=== PATIENT | male | born 1955 | race Caucasian/White ===

== ENCOUNTER → 2016-11-16 | Outpatient (CLI) | payer OTHER ==
[~2016-11-16] MED LIST: ADVIL COLD & S1 EAC1 PO; ATORVASTATIN CA40 MG PO; FLEXERIL PO; IBUPROFEN 200200 M1 PO; LIPITOR 20 MG T20 M1 PO; LISINOPRIL10 MG PO; LISINOPRIL20 MG PO; METFORMIN HCL500 MG PO; MOBIC15 MG PO; NORCO 10-325 T1 EACH PO; OXYCONTIN10 M1 PO; SIMVASTATIN40 MG PO; TRAMADOL 50 MG50 MG PO
[2016-11-16 13:00] LABS: CREATININE 1.2 mg/dL (0.6-1.3)
== END ==
LOC: MRI 08:31
PROVIDERS: Neurological Surgery
DX: M48.06 Spinal stenosis, lumbar region (principal); M47.26 Other spondylosis with radiculopathy, lumbar region; M54.5 Low back pain

== ENCOUNTER → 2016-11-17 | Outpatient (CLI) | payer OTHER ==
[~2016-11-17] VITALS: Ht 175.3 cm; Wt 80.7 kg
--- NOTE | ~2016-11-17 | HPC ---
[facility] [place] [address] PAIN MANAGEMENT CONSULTATION Name: JORGE PHILLIPS JR Room #: REG [facility].#: [id number] Admission: 11/17/16 Attend Phys: Carmine Hurley DO Discharge: Date of : 53 Report #: [id number] THIS REPORT FOR: //name// CC: [facility] physician/PCP Carmine Hurley The patient is a 60-year-old gentleman, prior seen in the pain clinic 07/05/2015, somewhat lost to follow up. He had been given epidural injection at that time, progressed to have left L3-L4 and L4-L5 decompressive laminectomy and fusion 09/20/2015. Notes symptoms have improved as he recovered from the surgery, but they unfortunately have again recurred, now with pain in the right buttock, leg to the calf, exacerbated with standing and walking, right heel is numb. PHYSICAL EXAMINATION: Shows a 60-year-old gentleman, BMI is 26.3 kg/m2. Blood pressure is modestly elevated 145/80, pulse 70, and respirations 16. Rises from chair using armrest, moderately antalgic gait, positive straight leg raise on the right at 30 degrees, positive straight leg raise on the left, but less symptomatic. Patellar reflex is absent on the left, 1/4 on the right (again primary pain is on the right side). Again, minimally antalgic gait. Lower extremity strength diminished right plantar flexion, lower extremity flexion. Reviewed diagnostic findings including MRI from 11/16/2016, noting significant stenosis at L2-L3, 5 x 8 mm, the aforementioned fusion L3-L5 with a right-sided herniated disk at L5-S1 compromising the right L5-S1 nerve roots. ASSESSMENT: Symptomatic lumbar radiculopathy status post decompressive laminectomy. RECOMMENDATION: 1. Long discussion with the patient today about therapeutic option. We talked about proceeding with epidural injection under fluoroscopy today at L5-S1. 2. We talked about spinal cord stimulator as possible therapeutic option versus recurrent surgery. Today, we have elected to move forward with an epidural injection under fluoroscopy today at L5-S1. I have taken the liberty of writing for hydrocodone 10/325 one tablet up to 4 times a day. The patient was cautioned about daytime somnolence, mental acuity changes, and constipation. This had prior been prescribed by Dr. Gao's office, but unfortunately his office is changing locations at present. PROCEDURE: Lumbar epidural injection under fluoroscopy. PROCEDURE NOTE: After both written and informed consent to include risk of spinal cord damage, increased pain, weakness and dural puncture, the patient was taken to the fluoroscopy suite, placed in the prone position. After sterile [address] [address] PAIN MANAGEMENT CONSULTATION Name: JORGE PHILLIPS JR Room #: REG [facility]#: [id number] Admission: 11/17/16 Attend Phys: Carmine Hurley DO Discharge: Date of : 53 Report #: [id number] prep and drape, a skin wheal with lidocaine was raised. A 22-gauge epidural Tuohy needle was inserted in the midline at L5-S1 with good loss to resistance. Negative aspiration for cerebrospinal fluid or blood was noted. Then 1 mL of Omnipaque under biplanar fluoroscopy showed good spread within the epidural space. This was followed with 80 mg of triamcinolone plus 1 mL of 1.5% preservative-free Xylocaine, 0.5 mL Xylocaine was then injected to flush the needle; it was removed. The patient was monitored for an appropriate period of time and discharged in good and stable condition. <ELECTRONICALLY SIGNED> By: Carmine Hurley DO 11/22/16 [id number] Carmine Hurley DO /nt
[2016-11-17 10:41] VITALS: BP 145/88
== END ==
LOC: PAIN 07:17
DX: M54.16 Radiculopathy, lumbar region (principal); M96.1 Postlaminectomy syndrome, not elsewhere classified

== ENCOUNTER → 2017-09-03 | Outpatient (CLI) | payer OTHER ==
[~2017-09-03] VITALS: Ht 175.3 cm; Wt 77.7 kg
[~2017-09-03] MED LIST changes: +LISINOPRIL2.5 MG PO; +METFORMIN PO
--- NOTE | ~2017-09-03 | HPC ---
[facility] [address] [place] [address] PAIN MANAGEMENT CONSULTATION Name: JORGE PHILLIPS JR Room #: REG [facility]#: [id number] Admission: 09/03/17 Attend Phys: Carmine Hurley DO Discharge: Date of : 53 Report #: [id number] THIS REPORT FOR: //name// CC: [facility] physician/PCP Carmine Hurley DATE OF SERVICE: 09/03/2017 The patient is a 61-year-old gentleman, prior seen for lumbar radiculopathy, given epidural injections in November and December of this year. Incidentally, he had been given 2 lumbar epidural injections back in 2014, all with good improvement. The patient returns to pain clinic today noting that injection back in November and December afforded near 100% relief for 6 months. Pain gradually begun to recur, flare about 2 months ago, intermittent aching, rates a 4 on VAS. Pain is in the right buttock, it has decreased his functional status. 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 Notes pain is exacerbated with activity in particularly getting out of a car. PHYSICAL EXAMINATION: Shows a 61-year-old gentleman, BMI is 25.3 kilograms per meter squared. Blood pressure 134/84, pulse 84, respirations 18. Rises from chair using armrest, nominally antalgic gait, positive straight leg raise at 30 degrees on the right. Slight decreased left lower extremity flexion strength compared to the right. He is status post fairly extensive fusion L3 through L5. DIAGNOSTIC STUDIES: MRI from 11/2016 notes right lateral recess extrusion of an L5-S1 disk. ASSESSMENT: Symptomatic lumbar radiculopathy status post decompressive laminectomy. The patient had near 100% relief following 2 epidural injections 8 months ago and relief for 6 months. Pain began to recur about 2 months ago. RECOMMENDATION: We will seek authorization for repeat epidural injection under fluoroscopy. By: [id number] Carmine Hurley DO /nt
[2017-09-03 10:00] VITALS: BP 134/84
== END ==
LOC: PAIN 06:55
DX: M54.16 Radiculopathy, lumbar region (principal); Z88.8 Allergy status to other drugs, medicaments and biological substances

== ENCOUNTER → 2017-10-22 | Outpatient (CLI) | payer OTHER ==
[~2017-10-22] VITALS: Ht 175.3 cm; Wt 77.0 kg
--- NOTE | ~2017-10-22 | HPC ---
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 He has done well with occasional epidural injections, was seen in consultation 10/08/2017, we diagnosed him with recurrent lumbar radiculopathy and sought authorization for epidural injection under fluoroscopy to release possible date. The patient presents to pain clinic today for that injection. He notes subjective pain score is 3-4 on a VAS, pain is worse with activity. Pain is primarily in the right buttock, posterior leg in a classic L5 radicular pattern. Vital signs are otherwise stable. ASSESSMENT: Symptomatic lumbar radiculopathy status post decompressive laminectomy. PROCEDURE: Lumbar epidural injection under fluoroscopy. PROCEDURE NOTE: After both written and informed consent to include risk of spinal cord damage, increased pain, weakness and dural puncture, the patient was taken to the fluoroscopy suite, placed in the prone position. After sterile prep and drape, a skin wheal with lidocaine was raised. A 22-gauge epidural Tuohy needle was inserted in the midline at L5-S1 with good loss to resistance. Negative aspiration for cerebrospinal fluid or blood was noted. Then 1 mL of Omnipaque under biplanar fluoroscopy showed good spread within the epidural space. This was followed with 80 mg of triamcinolone plus 1 mL of 1.5% preservative-free Xylocaine, 0.5 mL Xylocaine was then injected to flush the needle; it was removed. The patient was monitored for an appropriate period of time and discharged in good and stable condition. By: [id number] Carmine Hurley DO /nt
[2017-10-22 11:15] VITALS: BP 130/75
== END | disposition home or self-care (01) ==
LOC: PAIN 06:48
DX: M54.16 Radiculopathy, lumbar region (principal); G89.29 Other chronic pain; Z98.890 Other specified postprocedural states; Z79.899 Other long term (current) drug therapy